=== PATIENT | female | born 1975 | race Caucasian/White ===

== ENCOUNTER 2020-12-24 11:28 | Emergency (ER) | payer OTHER ==
[~2020-12-24] VITALS: Ht 165.1 cm; Wt 59.9 kg
[2020-12-24] MEDS ORDERED: VYVANSE20 MG PO (11:45)
[2020-12-24] MEDS ORDERED: GABAPENTIN600 M1 PO (11:45)
[2020-12-24] MEDS ORDERED: BUPROPION HCL150 M1 PO (11:46)
[2020-12-24] MEDS ORDERED: ZESTRIL20 MG PO (11:46)
[2020-12-24] MEDS ORDERED: REMERON15 M2 PO (11:46)
[2020-12-24] MEDS ORDERED: SUBOXONE 8 MG-1 EAC3 SUBLING (11:46)
[2020-12-24] MEDS ORDERED: LIPITOR10 MG PO (11:47)
[2020-12-24] MEDS ORDERED: BUPROPION XL300 MG PO (11:47)
[2020-12-24 12:05] LABS: ABSOLUTE EOSINOPHILS 0.1 thou/uL (0.0-0.7); ABSOLUTE LYMPHOCYTES 1.4 thou/uL (0.8-5.3); ABSOLUTE MONOCYTES 0.4 thou/uL (0.0-1.2); BASOPHILS 0.2 %; HEMATOCRIT 41.4 % (37.0-47.0); HEMOGLOBIN 14.3 gm/dL (12.0-15.0); LYMPHOCYTES 29.1 %; MCH 30.3 pg (26.0-34.0); MCHC 34.6 g/dL (28.0-37.0); MCV 87.5 fL (80.0-100.0); MONOCYTES 7.5 %; MPV 7.2 fl. (7.2-11.1); NUCLEATED RBCS 0 /100WBC; PLATELET COUNT* 257 thou/uL (150-400); POLYS 61.2 %; RBC 4.73 mil/uL (4.20-5.00); RDW-CV 12.5 % (10.5-14.5); WBC 4.9 thou/uL (4.0-11.0)
[2020-12-24 12:17] LABS: CALCIUM 8.5 mg/dL (8.5-10.1); CREATININE 0.6 mg/dL (0.6-1.3); POTASSIUM 3.9 mmol/L (3.5-5.1)
[2020-12-24 12:22] LABS: ALBUMIN 3.8 g/dL (3.4-5.0); TOTAL BILIRUBIN 0.3 mg/dL (<0.1-1.0); TOTAL PROTEIN 6.9 g/dL (6.4-8.2)
[2020-12-24] MEDS ORDERED: DEXAMETHASONE 44 M1 PO (12:39)
[2020-12-24] MEDS ORDERED: ZOFRAN ODT4 MG DISSOLVE (12:39)
[2020-12-24] MEDS ORDERED: IBUPROFEN 800800 MG PO ×2 (12:39→12:41)
[2020-12-24 12:47] VITALS: BP 133/83
--- NOTE | 2020-12-24 13:18 | EKG ---
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
== END 2020-12-24 12:48 | disposition home or self-care (01) ==
LOC: M.ERS 11:28
PROVIDERS: Family Medicine
DX: B34.9 Viral infection, unspecified (principal); Z20.822 Contact with and (suspected) exposure to COVID-19; F17.210 Nicotine dependence, cigarettes, uncomplicated; Z79.899 Other long term (current) drug therapy; Z88.2 Allergy status to sulfonamides